=== PATIENT | female | born 1995 | race Caucasian/White ===

== ENCOUNTER → 2019-09-25 | Outpatient (CLI) | payer OTHER ==
[2014-09-01 10:00] VITALS: BP 122/70
[~2019-09-25] MED LIST: [UNRECOGNIZED DRUG - OTHER]; stool softener
--- NOTE | 2019-09-25 12:24 | RAD ---
EXAM: Ultrasound OB Greater than 14 weeks INDICATION: Uterine size date discrepancy TECHNIQUE: Real-time obstetrical ultrasound was performed with permanent freeze-frame documentation. COMPARISON: None. FINDINGS: POSITION: Cephalic HEART RATE: 147 bpm IAN: 15.9 cm PLACENTA: Posterior not low-lying. CERVICAL LENGTH: 3.6 cm MATERNAL UTERUS: Unremarkable. MATERNAL ADNEXA: In the posterior cul-de-sac is a 6.0 x 6.5 x 6.9 cm simple cyst that could represent a peritoneal inclusion cyst. AGE/DATES: Gestational Age by LMP: 20 weeks 2 days Gestation Age by US: 20 weeks 4 days EDC by LMP: February 10, 2020 EDC by US: February 08, 2020 WEIGHT: 356 grams +/- 53 grams PERCENTILE WEIGHT: Not estimated BIOMETRIC PARAMETERS: BPD: 5.0 cm corresponding with 21 weeks 0 days HC: 18.3 cm corresponding with 20 weeks 4 days AC: 15.8 cm corresponding with 21 weeks 0 days FL: 3.2 cm corresponding with 19 weeks 6 days ANATOMY: CARDIAC: Normal four chamber heart. Normal right and left ventricular outflow tracts. UMBILICAL CORD: Normal 3 vessel cord. Normal cord insertion. BRAIN: Unremarkable. NOSE/LIPS: Unremarkable. SPINE: Unremarkable. EXTREMITIES: Unremarkable. STOMACH: Unremarkable. KIDNEYS: Unremarkable. BLADDER: Unremarkable. IMPRESSION: Normal OB ultrasound demonstrating a single viable fetus in cephalic position. Estimated gestational age of 20 weeks 4 days and EDC of February 08, 2020. Electronically signed by: Tea Hinton MD (09/25/2019 12:21 PM) [id number]
== END | disposition home or self-care (01) ==
LOC: US 10:50
PROVIDERS: ATTEND Obstetrics & Gynecology
DX: O26.849 Uterine size-date discrepancy, unspecified trimester (principal); Z3A.20 20 weeks gestation of pregnancy
CPT/HCPCS: 76805